=== PATIENT | male | born 1975 | race African-American/Black ===

== ENCOUNTER 2018-07-26 12:02 | Emergency (ER) | payer BC ==
[~2018-07-26] VITALS: Ht 175.3 cm; Wt 86.6 kg
[~2018-07-26 12:02] MED LIST: NORCO 5-325 TA1 EACH PO; PENICILLIN V P500 MG PO; PHENERGAN 25 MG25 MG PO; ULTRAM 50MG TAB50 MG PO
[2018-07-26 12:19] LABS: ABSOLUTE EOSINOPHILS 0.1 thou/uL (0.0-0.7); ABSOLUTE LYMPHOCYTES 2.8 thou/uL (0.8-5.3); ABSOLUTE MONOCYTES 0.4 thou/uL (0.0-1.2); ABSOLUTE NEUTROPHILS 2.5 thou/uL (1.6-8.1); BASOPHILS 0.8 %; EOSINOPHILS 1.9 %; HEMATOCRIT 45.5 % (42.0-52.0); HEMOGLOBIN 15.9 gm/dL (14.0-18.0); LYMPHOCYTES 47.4 %; MCH 32.3 pg (26.0-34.0); MCV 92.2 fL (80.0-100.0); MONOCYTES 7.3 %; MPV 8.6 fl. (7.2-11.1); NUCLEATED RBCS 0 /100WBC; PLATELET COUNT* 185 thou/uL (150-400); POLYS 42.6 %; RBC 4.93 mil/uL (4.50-6.00); RDW-CV 14.1 % (10.5-14.5)
[2018-07-26 12:54] LABS: ALBUMIN 3.8 g/dL (3.4-5.0); ALKALINE PHOSPHATASE 75 U/L (46-116); ANION GAP 6 mmol/L (7-16); BUN 12 mg/dL (7-18); CHLORIDE 105 mmol/L (98-107); CO2 29 mmol/L (21-32); GLUCOSE 92 mg/dL (70-99); POTASSIUM 3.9 mmol/L (3.5-5.1); SGOT 17 U/L (15-37); SGPT 16 U/L (30-65); SODIUM 140 mmol/L (136-145); TOTAL BILIRUBIN 0.4 mg/dL (<0.1-1.0); TOTAL PROTEIN 7.4 g/dL (6.4-8.2); TROPONIN-I LEVEL <0.06 ng/mL (<0.06)
[2018-07-26 13:20] LABS: URINE BILIRUBIN NEGATIVE (Negative); URINE BLOOD NEGATIVE (Negative); URINE CLARITY CLEAR; URINE COLOR YELLOW; URINE GLUCOSE-RANDOM NEGATIVE (Negative); URINE KETONES TRACE (Negative); URINE LEUKOCYTES-REFLEX NEGATIVE (Negative); URINE NITRITE-REFLEX NEGATIVE (Negative); URINE PROTEIN NEGATIVE (Negative); URINE SPECIFIC GRAVITY 1.025 (1.005-1.030)
[2018-07-26] MEDS ORDERED: MOBIC7.5 MG PO (13:47)
[2018-07-26] MEDS ORDERED: FLEXERIL PO (13:47)
[2018-07-26 13:56] VITALS: BP 131/97
--- NOTE | 2018-07-26 15:16 | EKG ---
[place] [address] ELECTROCARDIOGRAM REPORT Name: FANNY SHABAZZA Room: [facility]#: [id number] Admission: 07/26/18 Attend Phys: Discharge: 07/26/18 Date of : 79 Report #: [id number] THIS REPORT FOR: //name// [facility] Test Date: 2018-07-26 Test Time: 12:06:19 Pat Name: FANNY SHABAZZ Department: Room: Gender: M [employer]: : 1975 Requested By: Belen Cortes Order Number: [id number] MD: Jer Keller Measurements Intervals [place] Rate: 73 P: 48 LA: 172 QRS: -21 QRSD: 85 T: 34 QT: 375 QTc: 414 Interpretive Statements Sinus rhythm Atrial premature complex Borderline left axis deviation Anteroseptal infarct, old No previous ECG available for comparison Electronically Signed On 07-26-2018 15:16:26 CDT by Jer Keller [email or web address] <ELECTRONICALLY SIGNED> By: Jer Keller MD, [facility] 07/26/18 1516 1206 [id number] Jer Keller MD, FACC /EPI
== END 2018-07-26 13:58 | disposition home or self-care (01) ==
LOC: M.ERS 12:02
PROVIDERS: Nurse Practitioner Family
DX: R07.89 Other chest pain (principal); M54.5 Low back pain